=== PATIENT | female | born 1960 | race Caucasian/White ===

== ENCOUNTER 2020-05-18 06:01 | Observation (INO) | payer OTHER ==
[2020-05-18] MEDS ORDERED: SODIUM CHLORIDE 0.9% 500 ML 500 ML IV STA (06:21)
[2020-05-18] MEDS ORDERED: ASPIRIN 81 MG PO STA (06:21)
[2020-05-18] MEDS ORDERED: ENALAPRILAT 1.25 MG/ML 1 ML VIAL IVP STA (06:22)
[2020-05-18 06:41] LABS: Basophils # (A) 0.1 k/uL (0-0.2); Basophils % (A) 2 %; Eosinophils # (A) 0.2 k/uL (0-0.7); Eosinophils % (A) 3 %; HCT 43.7 % (34.0-46.0); Lymphocytes # (A) 3.1 k/uL (1.0-4.8); Lymphocytes % (A) 36 %; MCH 30.9 pg (25.0-35.0); MCHC 34.4 g/dL (31.0-37.0); MCV 89.9 fL (80.0-100.0); Mean Platelet Volume 7.6; Monocytes # (A) 0.5 k/uL (0-1.0); Monocytes % (A) 6 %; Neutrophils # (A) 4.5 k/uL (1.3-7.7); Neutrophils % (A) 53 %; Platelet Count 258 k/uL (150-450); RBC 4.86 m/uL (3.80-5.40); RDW 12.8 % (11.5-15.5); WBC 8.6 k/uL (3.8-10.6)
[2020-05-18 06:52] LABS: ALT 13 U/L (4-34); AST 20 U/L (14-36); African American GFR (CKD) >90 (>60 ml/min/1.73 sqM); Albumin 4.3 g/dL (3.5-5.0); Alkaline Phosphatase 90 U/L (38-126); Anion Gap 7 mmol/L; Blood Urea Nitrogen 10 mg/dL (7-17); Calcium 9.5 mg/dL (8.4-10.2); Carbon Dioxide 28 mmol/L (22-30); Chloride 106 mmol/L (98-107); Glucose 109 mg/dL (74-99); Lipase 104 U/L (23-300); Non-African American GFR(CKD) >90 (>60 ml/min/1.73 sqM); Potassium 3.9 mmol/L (3.5-5.1); Sodium 141 mmol/L (137-145); Total Bilirubin 0.5 mg/dL (0.2-1.3); Total Protein 7.5 g/dL (6.3-8.2)
[2020-05-18 06:53] LABS: Partial Thromboplastin Time 29.1 sec (22.0-30.0)
--- NOTE | 2020-05-18 06:55 | ED ---
Chest Pain HPI - General Chief Complaint: Chest Pain Stated Complaint: chest pain Time Seen by Provider: 05/18/20 06:11 Source: patient, RN notes reviewed Mode of arrival: wheelchair Limitations: no limitations - History of Present Illness Initial Comments: This a 59-year-old female presents emergency Department with chief complaint of chest pain. Patient states it started on Monday does wax and wane she states is currently is a dull pain. Patient has no significant cardiac history though she does have a history of hypertension hyperlipidemia and is a smoker. Patient does have some family heart disease. Patient states that she has no increased shortness of breath no abdominal pain no low back pain upper back pain. - Related Data Allergies Allergy/AdvReac Type Severity Reaction Status Date / Time azithromycin Allergy Unknown Verified 05/18/20 06:16 egg Allergy Unknown Verified 05/18/20 06:16 tramadol [From Ultram] Allergy Unknown Verified 05/18/20 06:16 Review of Systems ROS Statement: Those systems with pertinent positive or pertinent negative responses have been documented in the HPI. ROS Other: All systems not noted in ROS Statement are negative. EKG Findings - EKG Comments: EKG Findings:: EKG performed at 6:13 normal sinus rhythm rate of 82 NH 148 QRS 86 QT/QTC 396/462 Past Medical History Past Medical History: Hyperlipidemia, Hypertension History of Any Multi-Drug Resistant Organisms: MRSA Date of last positivie culture/infection: 2014 MDRO Source:: sinus Past Surgical History: Section, Tubal Ligation Additional Past Surgical History / Comment(s): sinus Past Psychological History: Depression Smoking Status: Current every day smoker Past Alcohol Use History: None Reported Past Drug Use History: None Reported General Exam Limitations: no limitations General appearance: alert, in no apparent distress Head exam: Present: atraumatic, normocephalic, normal inspection Eye exam: Present: normal appearance, PERRL, EOMI. Absent: scleral icterus, conjunctival injection, periorbital swelling ENT exam: Present: normal exam, normal oropharynx, mucous membranes moist Neck exam: Present: normal inspection, full ROM. Absent: tenderness, meningismus, lymphadenopathy Respiratory exam: Present: normal lung sounds bilaterally. Absent: respiratory distress, wheezes, rales, rhonchi, stridor Cardiovascular Exam: Present: regular rate, normal rhythm, normal heart sounds. Absent: systolic murmur, diastolic murmur, rubs, gallop, clicks GI/Abdominal exam: Present: soft, normal bowel sounds. Absent: distended, tenderness, guarding, rebound, rigid Neurological exam: Present: alert, oriented X3, CN II-XII intact, reflexes normal. Absent: motor sensory deficit Skin exam: Present: warm, dry, intact, normal color. Absent: rash Course Vital Signs 05/18/20 05/18/20 05/18/20 06:16 06:45 07:07 Temperature 98.5 F Pulse Rate 87 60 69 Respiratory 16 16 Rate Blood Pressure 200/103 160/81 168/83 O2 Sat by Pulse 99 98 97 Oximetry 05/18/20 07:18 Temperature Pulse Rate 68 Respiratory 18 Rate Blood Pressure 162/91 O2 Sat by Pulse 98 Oximetry Chest Pain MDM - MDM EKG, chest x-ray, labs are unremarkable at this point patient still has some mild discomfort. Patient will be admitted for cardiac rule out. Disposition Clinical Impression: Chest pain Disposition: ADMITTED IP TO THIS HOSP Condition: Fair Referrals: Sandoval Sims DO [Primary Care Provider] - 1-2 days
--- NOTE | 2020-05-18 07:33 | XR ---
EXAM: XR Chest, 2 Views CLINICAL HISTORY: Reason: Chest Pain TECHNIQUE: Frontal and lateral views of the chest. COMPARISON: No relevant prior studies available. FINDINGS: Lungs: Unremarkable. Normal lung volumes. No airspace consolidation. No pulmonary edema. Pleural space: Unremarkable. No pneumothorax. No pleural effusions. Heart: Unremarkable. No cardiomegaly. Mediastinum: Unremarkable. No mediastinal widening or shift. Bones/joints: Unremarkable. IMPRESSION: No evidence of acute cardiopulmonary abnormality.
[2020-05-18] MEDS ORDERED: HEPARIN SODIUM,PORCINE 5,000 UNIT/ML 1 ML VIAL IV ONE (07:39)
[2020-05-18] MEDS ORDERED: NITROGLYCERIN SL TABS 0.4 MG TAB SUBLINGUAL PRN (07:39)
[2020-05-18] MEDS ORDERED: HEPARIN SODIUM,PORCINE 5,000 UNIT/ML 1 ML VIAL IV PRN (07:39)
[2020-05-18] MEDS ORDERED: HEPARIN SOD,PORK IN 0.45% NACL 25,000 UNIT in 0.45% NACL 1 250ML.BAG IV SCH (07:45)
[2020-05-18 09:30] VITALS: PULSE 66; RESP 16
[2020-05-18] MEDS ORDERED: ATORVASTATIN 40 MG TAB PO SCH (09:30)
[2020-05-18] MEDS ORDERED: VALSARTAN 160 MG TAB PO SCH (09:30)
--- NOTE | 2020-05-18 10:09 | P.CRDCN ---
History of Present Illness History of present illness: HISTORY OF PRESENTING ILLNESS This is a pleasant 59-year-old female past medical history significant for hypertension, dyslipidemia and chronic nicotine dependence. 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 She states 6-years ago she saw one for palpitations. At that time she had a stress test and wore an outpatient monitor. According to her both tests were negative. We have been asked to see in consultation for chest pain. She states Monday while at work she felt an heavy pressure in her chest like someone kicked her. This was associated with shortness of breath. She was at work at the time and was able to continue about her day and finish. She left work around 0200 and went to sleep. She slept for 8 hours. Woke up and still didn't feel well so she went back to sleep and slept another 8 hours. She went to work again last night and had another episode of chest pain that this time radiated to her left neck and jaw. Again associated with shortness of breath and dizziness. She also describes recently having loss of appetite with mild nausea and increased fatigue. She denies palpitations, diaphoresis or vomiting. Currently she still has some mild chest pressure 2-3/10. She states she has been working with her PCP over the last few months for persistently elevated blood pressure. She had been on lisinopril and it was causing her a dry cough. 3 months ago he added valsartan on top of the lisinopril. She states she has been taking both and her blood pressures are not improving. On arrival her blood pressure was 200/103. She was given IV enalapril, repeat pressure 162/91. She is also concerned that for the previous 1-yr when she lays down to sleep at night her feet throb and feel cold. Strong pulses palpated distally. DIAGNOSTICS EKG reveals sinus mechanism with non-specific mild ST abnormalities noted, no old EKG for review. Telemetry tracings indicate sinus mechanism, no arrhythmias noted. Chest xray negative for an acute cardiopulmonary process. Laboratory reviewed, CBC unremarkable, sodium 141, potassium 3.9, creatinine 0.72, troponin negative x1 and proBNP 193. Current cardiac medications include valsartan 80 mg daily, lisinopril 10 mg daily and atorvastatin 10 mg daily. REVIEW OF SYSTEMS At the time of my exam: CONSTITUTIONAL: Denies fever or chills. CARDIOVASCULAR: Denies chest pain, shortness of breath, orthopnea, PND or palpitations. RESPIRATORY: Denies cough. GASTROINTESTINAL: Denies abdominal pain, diarrhea, constipation, nausea or vomiting. MUSCULOSKELETAL: Denies myalgias. NEUROLOGIC: Denies numbness, tingling or weakness. ENDOCRINE: Denies fatigue, weight change, polydipsia or polyurina. GENITOURINARY: Denies burning, hematuria or urgency with micturation. HEMATOLOGIC: Denies history of anemia or bleeding. PHYSICAL EXAMINATION Blood pressure 165/81 heart rate 65 afebrile and maintaining oxygen saturation on room air. CONSTITUTIONAL: No apparent distress. HEENT: Head is normocephalic. Pupils are equal, round. Sclerae anicteric. Mucous membranes of the mouth are moist. No JVD. No carotid bruit. CHEST EXAMINATION: Lungs are clear to auscultation. No chest wall tenderness is noted on palpation or with deep breathing. HEART EXAMINATION: Regular rate and rhythm. S1, S2 heard. No murmurs, gallops or rub. ABDOMEN: Soft, nontender. Positive bowel sounds. EXTREMITIES: 2+ peripheral pulses, no lower extremity edema and no calf tenderness. NEUROLOGIC EXAMINATION: Patient is awake, alert and oriented x3. ASSESSMENT Chest pain Hypertension, uncontrolled Dyslipidemia Foot pain at night Chronic nicotine dependence PLAN Symptoms are concerning for underlying coronary artery disease. We recommend proceeding with cardiac catheterization. I have discussed the risks, benefits and alternative therapies for the above-mentioned procedure and for both sedation/analgesia as well as necessary blood product administration, if indicated, as they pertain to this patient. The patient has indicated understanding and acceptance of the risks and procedures discussed. Questions have been answered appropriately and she is agreeable to move forward with above stated procedure. If unremarkable, consider outpatient monitor. Home regimen of valsartan and lisinopril is not ideal or recommended as they are from the same family of drugs. Given her side effects with lisinopril we will recommend to discontinue that mediation and increase the daily dose of valsartan to 160 mg. Check lipid panel. Obtain 2D echocardiogram and doppler study to assess cardiac structure and function. Smoking cessation recommended. Further recommendations to follow based on clinical course. Thank you kindly for this consultation. Nurse Practitioner note has been reviewed, I agree with a documented findings and plan of care. Patient was seen and examined. Past Medical History Past Medical History: Hyperlipidemia, Hypertension History of Any Multi-Drug Resistant Organisms: MRSA Date of last positivie culture/infection: 2014 MDRO Source:: sinus Past Surgical History: Section, Tubal Ligation Additional Past Surgical History / Comment(s): sinus Past Psychological History: Depression Smoking Status: Current every day smoker Past Alcohol Use History: None Reported Past Drug Use History: None Reported Medications and Allergies Home Medications Medication Instructions Recorded Confirmed Type Albuterol Inhaler [Ventolin Hfa 2 puff INHALATION RT-QID PRN 05/18/20 05/18/20 History Inhaler] Atorvastatin Calcium [Lipitor] 10 mg PO DAILY 05/18/20 05/18/20 History Cholecalciferol [Vitamin D3 (25 1,000 unit PO DAILY 05/18/20 05/18/20 History Mcg = 1000 Iu)] Citalopram Hydrobromide [CeleXA] 20 mg PO DAILY 05/18/20 05/18/20 History Lisinopril [Zestril] 10 mg PO DAILY 05/18/20 05/18/20 History Montelukast Sodium [Singulair] 10 mg PO DAILY 05/18/20 05/18/20 History Valsartan 80 mg PO DAILY 05/18/20 05/18/20 History Allergies Allergy/AdvReac Type Severity Reaction Status Date / Time azithromycin Allergy Unknown Verified 05/18/20 06:16 egg Allergy Unknown Verified 05/18/20 06:16 tramadol [From Ultram] Allergy Unknown Verified 05/18/20 06:16 Physical Exam Vitals: Vital Signs Temp Pulse Resp BP Pulse Ox 05/18/20 08:50 98.4 F 65 18 165/81 99 05/18/20 07:18 68 18 162/91 98 05/18/20 07:07 69 168/83 97 05/18/20 06:45 60 16 160/81 98 05/18/20 06:16 98.5 F 87 16 200/103 99 Intake and Output 05/17/20 05/18/20 05/18/20 22:59 06:59 14:59 Other: Weight 68.039 kg Results 05/18/20 06:27 05/18/20 06:27 Cardiac Enzymes 05/18/20 05/18/20 Range/Units 06:27 06:27 AST 20 (14-36) U/L Troponin I <0.012 (0.000-0.034) ng/mL Coagulation 05/18/20 Range/Units 06:27 PT 10.0 (9.0-12.0) sec APTT 29.1 (22.0-30.0) sec CBC 05/18/20 Range/Units 06:27 WBC 8.6 (3.8-10.6) k/uL RBC 4.86 (3.80-5.40) m/uL Hgb 15.0 (11.4-16.0) gm/dL Hct 43.7 (34.0-46.0) % Plt Count 258 (150-450) k/uL Comprehensive Metabolic Panel 05/18/20 Range/Units 06:27 Sodium 141 (137-145) mmol/L Potassium 3.9 (3.5-5.1) mmol/L Chloride 106 (98-107) mmol/L Carbon Dioxide 28 (22-30) mmol/L BUN 10 (7-17) mg/dL Creatinine 0.72 (0.52-1.04) mg/dL Glucose 109 H (74-99) mg/dL Calcium 9.5 (8.4-10.2) mg/dL AST 20 (14-36) U/L ALT 13 (4-34) U/L Alkaline Phosphatase 90 (38-126) U/L Total Protein 7.5 (6.3-8.2) g/dL Albumin 4.3 (3.5-5.0) g/dL Current Medications Generic Name Dose Route Start Last Admin Trade Name Heberq PRN Reason Stop Dose Admin Aspirin 81 mg 05/19/20 09:00 Aspirin 81 Mg PO DAILY [facility] Heparin Sodium (Porcine) 0 unit 05/18/20 07:39 Heparin Sodium,Porcine 5,000 Unit/Ml 1 Ml Vial IV Q6HR PRN Low PTT Protocol Heparin Sodium/Sodium Chloride 250 mls @ 8.165 mls/hr 05/18/20 07:45 05/18/20 08:44 25,000 unit/ Sodium Chloride IV 12 units/kg/hr .Q24H CRISTOFER 8.165 mls/hr Administration Protocol 12 UNITS/KG/HR Nitroglycerin 0.4 mg 05/18/20 07:39 Nitroglycerin Sl Tabs 0.4 Mg Tab SUBLINGUAL Q5M PRN Chest Pain Valsartan 160 mg 05/18/20 09:30 Valsartan 160 Mg Tab PO DAILY CRISTOFER Intake and Output 05/17/20 05/18/20 05/18/20 22:59 06:59 14:59 Other: Weight 68.039 kg 05/18/20 06:27 05/18/20 06:27
[2020-05-18] MEDS ORDERED: ALPRAZolam 0.25 MG TAB PO PRN (10:12)
[2020-05-18] MEDS ORDERED: ALPRAZolam 0.5 MG TAB PO PRN (10:12)
[2020-05-18] MEDS ORDERED: SODIUM CHLORIDE 0.9% 1,000 ML in EMPTY BAG 1 BAG IV ONE (10:12)
[2020-05-18 11:12] LABS: Cholesterol 229 mg/dL (<200); HDL Cholesterol 38 mg/dL (40-60); LDL Cholesterol,Calculated 135 mg/dL (0-99); Triglycerides 281 mg/dL (<150)
[2020-05-18] MEDS ORDERED: ALBUTEROL HFA INHALER INHALATION PRN (11:13)
[2020-05-18] MEDS ORDERED: CHOLECALCIFEROL 1,000 UNIT TAB PO SCH (11:15)
[2020-05-18] MEDS ORDERED: MONTELUKAST 10 MG TAB PO SCH (11:15)
[2020-05-18] MEDS ORDERED: CITALOPRAM HYDROBROMIDE 20 MG TAB PO SCH (11:15)
--- NOTE | 2020-05-18 13:13 | ECHOF ---
Referral Reason:cp, htn MEASUREMENTS -------- HEIGHT: 170.2 cm WEIGHT: 68.0 kg BP: RVIDd: 2.4 cm (< 3.3) IVSd: 1.1 cm (0.6 - 1.1) LVIDd: 4.0 cm (3.9 - 5.3) LVPWd: 1.1 cm (0.6 - 1.1) IVSs: 1.4 cm LVIDs: 3.4 cm LVPWs: 1.3 cm LAESV Index (A-L): 16.94 ml/m Ao Diam: 3.0 cm (2.0 - 3.7) AV Cusp: 1.7 cm (1.5 - 2.6) MV EXCURSION: 17.007 mm (> 18.000) MV EF SLOPE: 86 mm/s (70 - 150) EPSS: 0.7 cm MV E Valentino: 0.44 m/s MV DecT: 323 ms MV A Valentino: 0.68 m/s MV E/A Ratio: 0.65 RAP: 5.00 mmHg RVSP: 17.11 mmHg FINDINGS -------- Sinus rhythm. This was a technically good study. The left ventricular size is normal. There is borderline concentric left ventricular hypertrophy. Overall left ventricular systolic function is low-normal with, an EF between 50 - 55 %. The right ventricle is normal in size. Normal LA size by volume 22+/-6 ml/m2. The right atrial size is normal. The aortic valve is trileaflet, and appears structurally normal. No aortic stenosis or regurgitation. Mild mitral regurgitation is present. Mild tricuspid regurgitation present. Right ventricular systolic pressure is normal at < 35 mmHg. There is no pulmonic regurgitation present. The aortic root size is normal. There is no pericardial effusion. CONCLUSIONS -------- 1. The left ventricular size is normal. 2. There is borderline concentric left ventricular hypertrophy. 3. Overall left ventricular systolic function is low-normal with, an EF between 50 - 55 %. 4. The right ventricle is normal in size. 5. Normal LA size by volume 22+/-6 ml/m2. 6. The right atrial size is normal. 7. Mild mitral regurgitation is present. 8. Mild tricuspid regurgitation present. 9. There is no pulmonic regurgitation present. 10. The aortic root size is normal. 11. There is no pericardial effusion. QUENCHING CAR OPERATOR: Ashley Talavera RDCS
[2020-05-18] MEDS ORDERED: IV FLUID CONTINUATION 1,000 ML IV ONE (13:16)
[2020-05-18] MEDS ORDERED: LIDOCAINE 1% INJ 10MG/ML (20 ML MDV) ONE (13:26)
[2020-05-18] MEDS ORDERED: VERAPAMIL 2.5 MG/ML 2 ML AMP ONE (13:26)
[2020-05-18] MEDS ORDERED: fentaNYL (PF) 50 MCG/ML 2 ML AMP ONE (13:30)
[2020-05-18] MEDS ORDERED: MIDAZOLAM 2 MG/2 ML VIAL IV ONE (13:35)
[2020-05-18] MEDS ORDERED: fentaNYL (PF) 50 MCG/ML 2 ML AMP IV ONE (13:35)
[2020-05-18] MEDS ORDERED: LIDOCAINE 1% INJ 10MG/ML (20 ML MDV) SQ ONE (13:36)
[2020-05-18] MEDS ORDERED: VERAPAMIL SYRINGE (5 MG/10 ML) INTRAARTER ONE (13:39)
[2020-05-18] MEDS ORDERED: HEPARIN SODIUM 1,000 UN/ML (10ML VL) IV ONE (13:40)
[2020-05-18] MEDS ORDERED: IOPAMIDOL-370 125ML BTL INJ ONE (13:46)
[2020-05-18] MEDS ORDERED: RX INFO: IV CONTRAST WAS GIVEN 1 EACH MISC MISCELLANE PRN (13:51)
--- NOTE | 2020-05-18 13:51 | P.CARDCATH ---
Description of Procedure: PROCEDURES PERFORMED: Bilateral coronary angiography INDICATION: Chest pain concerning for unstable angina HISTORY: Patient is a pleasant 5-year-old female with history of hypertension, hyperlipidemia, tobacco abuse and palpitations who presents secondary to episodes of chest pain, nausea, shortness breath mainly lasting for 2-3 minutes oral past 2 days concerning for unstable angina. Therefore patient was recommended to have heart catheterization performed. CONSENT:I have discussed the risks, benefits and alternative therapies for the above-mentioned procedure and for both sedation/analgesia as well as necessary blood product administration, if indicated, as they pertain to this patient. The patient has indicated understanding and acceptance of the risks and procedures discussed. PROCEDURE: After the risks, benefits and alternatives of the above mentioned procedure explained in detail with the patient, informed consent was obtained. Patient was taken to the catheterization lab and prepped and draped in usual fashion. 1% lidocaine was used to anesthetize the right radial artery. A 6- Marshallese sheath was placed in the right radial artery using modified Seldinger technique. Left coronary angiography was performed with a 5-Marshallese JL 3.5 catheter and right coronary angiography was performed with a 5-Marshallese JR5 catheter in various views. The right radial sheath was removed and a TR band was placed with hemostasis achieved. The patient tolerated the procedure well. Patient was transported back to the post catheterization holding area in stable condition. Conscious Sedation: Patient was monitored under the direct supervision of vision of myself for conscious sedation using Versed and fentanyl for a total duration of 11 minutes HEMODYNAMICS: Ao: 147/77 SELECTIVE CORONARY ARTERIOGRAPHY: LEFT MAIN: The left main is a large caliber vessel which bifurcates into the LAD and circumflex. There is no significant stenosis. LEFT ANTERIOR DESCENDING CORONARY ARTERY: LAD is a large caliber vessel which wraps around to the apex. There is no significant stenosis. LEFT CIRCUMFLEX CORONARY ARTERY: Left circumflex is a moderate caliber vessel without significant stenosis. RIGHT CORONARY ARTERY: The right coronary artery is a large caliber vessel which gives off a PDA and PLV branch and is the dominant vessel. There is no significant stenosis. FINAL IMPRESSION: 1. Normal coronary arteries as described above. 2. Normal ejection fraction 60% percent without wall motion abnormalities. PLAN: 1. Aggressive risk factor modification per most recent ACC/AHA guidelines. 2. Follow-up in the office in 1-2 weeks.
[2020-05-18 15:21] VITALS: TEMP 97.8
[2020-05-18 17:42] VITALS: BP 147/75
--- NOTE | 2020-05-18 20:00 | P.HPIM ---
History of Present Illness H&P Date: 05/18/20 Chief Complaint: Chest pain History of presenting complaint: This is a pleasant 59-year-old patient of Dr. Sims. Chronic stable medical conditions include hypertension, hyperlipidemia, nicotine dependence. 2 days ago patient started feeling oppressive sensation in the chest. As his 70s taking her. Present on and off. Subsequently did radiate to her neck. Patient was slightly short of breath. No perspiration. No dizziness or lightheadedness. Still negative stress test 5 years ago. Patient admitted with diagnosis of unstable angina. Review of systems: GEN.: None EYES: None HEENT: None NECK: None RESPIRATORY: As above CARDIOVASCULAR: As above GASTROINTESTINAL: None GENITOURINARY: None MUSCULOSKELETAL: None LYMPHATICS: None HEMATOLOGICAL: None PSYCHIATRY: None NEUROLOGICAL: None Past medical history to include: Hypertension, hyperlipidemia, MRSA infection, depression Social history: Patient smokes a pack a day. Patient's with the registered nurse at [facility] . Lives with her daughter and son-in-law. Family history: Reviewed, noncontributory to presentation Physical examination: VITAL SIGNS: 98.5, 87, 16, 1 61/81, 99% room air GENERAL: BMI 23.5, laying in bed, slightly anxious. EYES: Pupils equal. Conjunctiva normal. HEENT: External appearance of nose and ears normal, oral cavity grossly normal. NECK: JVD not raised; masses not palpable. HEART: First and second heart sounds are normal; no edema. LUNGS: Respiratory rate normal; slightly decreased breath sounds. ABDOMEN: Soft, nontender, liver spleen not palpable, no masses palpable. PSYCH: [Alert and oriented x3; mood and affect anxious l. NEUROLOGICAL: Cranial nerves grossly intact; no facial asymmetry, power and sensation grossly intact. LYMPHATICS: No lymph nodes palpable in the axilla and neck INVESTIGATIONS, reviewed in the clinical context: White count 8.6 hemoglobin 15 platelets 258 potassium 3.9 creatinine 0.7 to Troponin I 3 negative LDL 135 EKG tracing personally reviewed by me-normal sinus rhythm Chest x-ray film personally reviewed by me-normal sinus rhythm Assessment: -Possible unstable angina in a patient with cardiac risk factors including hypertension, hyperlipidemia, nicotine's smoker -Essential hypertension, with urgency -Hyperlipidemia -Chronic nicotine dependence patient cigarette smoker -Mild anxiety Plan: Patient had been put on IV heparin. NV was ruled out. Seen by cardiology earlier today. Plan is for a cardiac catheterization. 2-D echocardiogram was ordered. Patient advised against smoking. Past Medical History Past Medical History: Hyperlipidemia, Hypertension History of Any Multi-Drug Resistant Organisms: MRSA Date of last positivie culture/infection: 2014 MDRO Source:: sinus Past Surgical History: Section, Tubal Ligation Additional Past Surgical History / Comment(s): sinus Past Psychological History: Depression Smoking Status: Current every day smoker Past Alcohol Use History: None Reported Past Drug Use History: None Reported Medications and Allergies Home Medications Medication Instructions Recorded Confirmed Type Albuterol Inhaler [Ventolin Hfa 2 puff INHALATION RT-QID PRN 05/18/20 05/18/20 History Inhaler] Atorvastatin Calcium [Lipitor] 10 mg PO DAILY 05/18/20 05/18/20 History Cholecalciferol [Vitamin D3 (25 1,000 unit PO DAILY 05/18/20 05/18/20 History Mcg = 1000 Iu)] Citalopram Hydrobromide [CeleXA] 20 mg PO DAILY 05/18/20 05/18/20 History Lisinopril [Zestril] 10 mg PO DAILY 05/18/20 05/18/20 History Montelukast Sodium [Singulair] 10 mg PO DAILY 05/18/20 05/18/20 History Valsartan 80 mg PO DAILY 05/18/20 05/18/20 History Allergies Allergy/AdvReac Type Severity Reaction Status Date / Time azithromycin Allergy Unknown Verified 05/18/20 06:16 egg Allergy Unknown Verified 05/18/20 06:16 tramadol [From Ultram] Allergy Unknown Verified 05/18/20 06:16 Physical Exam Vitals: Vital Signs Temp Pulse Pulse Resp BP BP Pulse Ox 05/18/20 09:22 98.3 F 66 16 186/79 98 05/18/20 08:50 98.4 F 65 18 165/81 99 05/18/20 07:18 68 18 162/91 98 05/18/20 07:07 69 168/83 97 05/18/20 06:45 60 16 160/81 98 05/18/20 06:16 98.5 F 87 16 200/103 99 Intake and Output 05/17/20 05/18/20 05/18/20 22:59 06:59 14:59 Other: Weight 68.039 kg 68.039 kg Results CBC & Chem 7: 05/18/20 06:27 05/18/20 06:27 Labs: Abnormal Lab Results - Last 24 Hours (Table) 05/18/20 05/18/20 Range/Units 06:27 06:27 Glucose 109 H (74-99) mg/dL Triglycerides 281 H (<150) mg/dL Cholesterol 229 H (<200) mg/dL LDL Cholesterol, Calc 135 H (0-99) mg/dL HDL Cholesterol 38 L (40-60) mg/dL Thrombosis Risk Factor Assmnt - Choose All That Apply Any of the Below Risk Factors Present?: Yes Each Factor Represents 1 point: Age 41-60 years Other Risk Factors: No Other congenital or acquired thrombophilia - If yes, enter type in comment: No Thrombosis Risk Factor Assessment Total Risk Factor Score: 1 Thrombosis Risk Factor Assessment Level: Low Risk
--- NOTE | 2020-05-18 20:07 | P.DS ---
Providers Date of admission: 05/18/20 08:05 Expected date of discharge: 05/18/20 Attending physician: Siddhartha Newman Consults: 05/18/20 07:40 Consult Physician Urgent Consulting Provider: Johny Colin Consult Reason/Comments: chest pain Do you want consulting provider notified?: Yes Primary care physician: Sandoval Beaumont Hospital Course: Chief Complaint: Chest pain History of presenting complaint: This is a pleasant 59-year-old patient of Dr. Sims. Chronic stable medical conditions include hypertension, hyperlipidemia, nicotine dependence. 2 days ago patient started feeling oppressive sensation in the chest. As his 70s taking her. Present on and off. Subsequently did radiate to her neck. Patient was slightly short of breath. No perspiration. No dizziness or lightheadedness. Still negative stress test 5 years ago. Patient admitted with diagnosis of unstable angina. Later today patient underwent a cardiac catheterization. Found to have normal coronaries. Troponins were negative. 2-D echocardiogram was unremarkable. Consultation: Dr. Molina from cardiology Physical examination: VITAL SIGNS: 97.8, 16, 147.75, 97% room air GENERAL: BMI 23.5, laying in bed, slightly anxious. EYES: Pupils equal. Conjunctiva normal. NECK: JVD not raised; masses not palpable. HEART: First and second heart sounds are normal; no edema. LUNGS: Respiratory rate normal; slightly decreased breath sounds. ABDOMEN: Soft, nontender, liver spleen not palpable, no masses palpable. PSYCH: [Alert and oriented x3; mood and affect anxious . INVESTIGATIONS, reviewed in the clinical context: 2-D echocardiogram-EF 50-55% Cardiac catheterization-normal coronaries White count 8.6 hemoglobin 15 platelets 258 potassium 3.9 creatinine 0.7 to Troponin I 3 negative LDL 135 EKG tracing personally reviewed by me-normal sinus rhythm Chest x-ray film personally reviewed by me-normal sinus rhythm Assessment: -Anterior chest wall pain-possibly musculoskeletal -Essential hypertension, with urgency -Hyperlipidemia -Chronic nicotine dependence patient cigarette smoker -Mild anxiety Disposition: Home Patient Condition at Discharge: Stable Plan - Discharge Summary Discharge Rx Participant: No New Discharge Prescriptions: No Action Valsartan 80 mg PO DAILY Montelukast Sodium [Singulair] 10 mg PO DAILY Lisinopril [Zestril] 10 mg PO DAILY Cholecalciferol [Vitamin D3 (25 Mcg = 1000 Iu)] 1,000 unit PO DAILY Albuterol Inhaler [Ventolin Hfa Inhaler] 2 puff INHALATION RT-QID PRN PRN Reason: Shortness Of Breath Citalopram Hydrobromide [CeleXA] 20 mg PO DAILY Atorvastatin Calcium [Lipitor] 10 mg PO DAILY Discharge Medication List Albuterol Inhaler [Ventolin Hfa Inhaler] 2 puff INHALATION RT-QID PRN 05/18/20 [History] Atorvastatin Calcium [Lipitor] 10 mg PO DAILY 05/18/20 [History] Cholecalciferol [Vitamin D3 (25 Mcg = 1000 Iu)] 1,000 unit PO DAILY 05/18/20 [History] Citalopram Hydrobromide [CeleXA] 20 mg PO DAILY 05/18/20 [History] Lisinopril [Zestril] 10 mg PO DAILY 05/18/20 [History] Montelukast Sodium [Singulair] 10 mg PO DAILY 05/18/20 [History] Valsartan 80 mg PO DAILY 05/18/20 [History] Follow up Appointment(s)/Referral(s): Sandoval Sims DO [Primary Care Provider] - 1-2 days (Office is currently closed, please call Monday am to schedule appointment.) Alli Molina DO [STAFF PHYSICIAN] - 1 Week (Office is currently closed, please call Monday am to schedule appointment.) Patient Instructions/Handouts: *Surgery [facility] - After Heart Catheterization - Professor Of Art History Instructions Discharge Disposition: HOME SELF-CARE
[2020-05-19] MEDS ORDERED: ASPIRIN 325 MG TAB PO SCH (09:00)
[2020-05-19] MEDS ORDERED: ASPIRIN 81 MG PO SCH (09:00)
== END 2020-05-18 19:49 | disposition home or self-care (01) ==
LOC: EC 06:01 → 1SOBS 08:05
PROVIDERS: ADMIT Hospitalist; ATTEND Hospitalist
DX: R07.89 Other chest pain (principal); I10 Essential (primary) hypertension; E78.5 Hyperlipidemia, unspecified; F32.9 Major depressive disorder, single episode, unspecified; R06.02 Shortness of breath; R42 Dizziness and giddiness; R11.0 Nausea; R53.83 Other fatigue; R63.0 Anorexia; M79.672 Pain in left foot; M79.671 Pain in right foot; F17.210 Nicotine dependence, cigarettes, uncomplicated; F41.9 Anxiety disorder, unspecified; I16.0 Hypertensive urgency; R00.2 Palpitations; Z79.899 Other long term (current) drug therapy; Z88.5 Allergy status to narcotic agent; Z88.1 Allergy status to other antibiotic agents; Z91.012 Allergy to eggs; Z86.14 Personal history of Methicillin resistant Staphylococcus aureus infection; Z82.49 Family history of ischemic heart disease and other diseases of the circulatory system
CPT/HCPCS: 96374; 96375; 99285; 36415; 93005; 93306; 93454; 83880; 80061; 80053; 83690; 83735; 84484; 85025; 85610; 85730; 71046; G0378; C1769; C1894; J2250; J1644 ×3; J2001; J3010; Q9967

== ENCOUNTER → 2020-08-18 | Outpatient (CLI) | payer OTHER ==
--- NOTE | 2020-08-18 16:35 | CONS ---
CONSULTATION REASON FOR CONSULTATION: Evaluation of sleep apnea. 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 The patient works between 9 p.m. and 7 a.m. in the morning. She is known to have hypertension and she also has a history of chronic anxiety and depression. She takes citalopram 20 mg p.o. daily. The patient has a special home situation where she has her daughter and son-in-law in addition to 3 other kids living with her in the same house. One of her grandchildren has a psychiatric disorder, schizoaffective disorder, and he can be at times aggressive and agitated. In any rate, she is having difficulties with her concentration span and attention span and her functionality at work, and she thinks it is related to her sleep. Typically she gets home by 7 and she goes to bed around 9 a.m. She has a very comfortable bedroom which is quite dark and comfortable, and she typically likes to get around 6-7 hours of sleep but she is unable to do so, as the patient wakes up around 1 p.m. and she is unable to go back to sleep. She struggles back and forth, and at times she gets up, does some work, and goes back to bed and manages to get another hour or two of sleep between 1 p.m. and 7 p.m. As such, she is feeling tired and she is feeling sleepy during her working hours. No recent weight gain. No documented history of snoring or witnessed apneas, although she thinks that she snores. No significant restlessness in the lower extremities. No issues with pain. No sleepwalking. No sleeptalking. No grinding of the teeth. No nocturia. No episodes of waking up choking or gasping for air. As such, the exact cause for her inability to maintain sleep beyond 1 p.m. is not clear to her. PAST MEDICAL HISTORY: Hypertension, chronic anxiety/depression and history of chronic smoking. SURGICAL HISTORY: Tubal ligation. DRUG ALLERGIES: NOT KNOWN. She is ALLERGIC to TOMATOES, EGGS, COFFEE, CATS, DOGS AND LANGLEY'S YEAST. MEDICATION: Medication includes: 1. Chlorthalidone 1 tablet a day. 2. Citalopram 20 mg p.o. daily. 3. Lipitor 20 mg p.o. daily. 4. Valsartan 80 mg p.o. daily. 5. Singulair 10 mg p.o. daily. 6. Vitamin D 2000 units daily. SOCIAL HISTORY: She smokes one pack of cigarettes a day. No history of alcoholism. No history of IV drugs. FAMILY HISTORY: Noncontributory. Negative for sleep apnea. REVIEW OF SYSTEMS: Fourteen-point review of systems was done. Positive findings are all mentioned above in the history of present illness. There may be a component of anxiety and depression. The patient tries to sleep on her side. She does not drink coffee. She drinks sometimes Mountain Dew. She typically has a light breakfast. No sleep paralysis. No hallucinations or cataplexy. She is concerned that she may be falling asleep while driving back and forth to work. No chest pain. No nausea. No vomiting. No heartburn. No respiratory difficulties during sleep. No nightmares. No head trauma. No meningitis. No stroke. PHYSICAL EXAMINATION: VITAL SIGNS: BP is 160/94, pulse 84, respirations 12, temperature 98.8, saturation 97% on room air. Height is 5 feet 7 inches, weight is 155. Baraboo score is 14. Neck size is 14-1/2 and BMI is 24.2. GENERAL APPEARANCE: Calm, comfortable. HEAD: Atraumatic, normocephalic. NECK: Supple. No JVD. No goiter or neck masses. Mallampati class II to III. LUNGS: Clear to auscultation. HEART: Heart sounds are regular rate and rhythm. Normal S1, S2. No S3, S4. No murmurs. ABDOMEN: Soft, nontender. No organomegaly. EXTREMITIES: No edema. No cyanosis or clubbing. IMPRESSION: 1. Hypersomnia during working hours. The patient is a night cleaner worker and she is unable to generate an adequate number of hours of sleep in the morning, and we think this is probably contributing to her diminished level of alertness and increased sleepiness at her working hours. Fortunately the patient has not had any judgment error or mistakes at work, and she manages to keep her job as a nurse at the [employer]. 2. Sleep maintenance insomnia. Consider underlying obstructive sleep apnea, although this is a low likelihood, in my opinion. Other factors could be contributing, including increased anxiety and depression in addition to other social factors at home which may be potentially waking up the patient in the early afternoon time and she is unable to maintain a good 6 to 7 hours of sleep. 3. Chronic anxiety and depression, on Celexa. 4. Hypertension. 5. Hyperlipidemia. 6. History of smoking. PLAN: 1. Encourage to optimize sleep hygiene measures as much as possible. 2. Will ask the patient to wear sunglasses on the way driving back home and avoid light stimulation. 3. Will ask the patient to sleep in a very comfortable bedroom environment without any distraction or noise from family members or any other elements in the house, including pets. 4. Avoid caffeinated beverages or any other form of stimulants at least 3-4 hours prior to her time to go to bed. 5. Will do a polysomnogram. This will be a morning polysomnogram to evaluate this patient for any other abnormalities contributing to her difficulties in maintaining sleep. 6. I doubt the patient has obstructive sleep apnea. I doubt the patient has night cleaner worker's disease/disorder. It is possible that extending her sleep hours may help her with her functionality during the day. A final decision will be made after reviewing the polysomnogram. May add a morning hypnotic to extend her sleep hours to an average of 6 to 7 hours. The patient has tried melatonin and Benadryl in the past, without much success. 7. Keep the same medication. 8. Will continue to follow. TEDDY / URIN: [id number] /
== END ==
LOC: SLEEP 14:44
PROVIDERS: ATTEND Internal Medicine Critical Care Medicine
DX: G47.10 Hypersomnia, unspecified (principal); G47.00 Insomnia, unspecified; F32.9 Major depressive disorder, single episode, unspecified; F41.9 Anxiety disorder, unspecified; I10 Essential (primary) hypertension; E78.5 Hyperlipidemia, unspecified; F17.210 Nicotine dependence, cigarettes, uncomplicated; Z79.899 Other long term (current) drug therapy
CPT/HCPCS: 99211

== ENCOUNTER 2021-11-24 10:01 | Emergency (ER) | payer OTHER ==
[2021-11-24 11:06] VITALS: TEMP 98.4
--- NOTE | 2021-11-24 12:02 | ED ---
General Adult HPI - General Chief complaint: Headache Stated complaint: sinus pain Time Seen by Provider: 11/24/21 11:55 Source: patient, RN notes reviewed, old records reviewed Mode of arrival: ambulatory Limitations: no limitations - History of Present Illness Initial comments: This is a 61-year-old female that presents to the emergency room with complaints of left frontal and maxillary sinus pain since September. She states that she did see her primary care doctor who prescribed her antibiotics September 13. She states that she did have 2 weeks of relief and then the pain came back. She states that she was told to come to the emergency room today for a CAT scan. She denies any fevers, no nausea and vomiting. She states that she's been trying Tylenol Motrin with no relief. She does have a history of migraines, hypertension and high cholesterol. She states that she also has had sinus surgery in the past. She does smoke a pack a day -: month(s) (3) Location: face (left front and maxillary sinus with upper teeth pain) Severity scale (1-10): 10 Quality: constant Consistency: constant Improves with: none Associated Symptoms: denies other symptoms Treatments Prior to Arrival: NSAID - Related Data Home Medications Medication Instructions Recorded Confirmed Albuterol Inhaler [Ventolin Hfa 2 puff INHALATION RT-QID PRN 05/18/20 05/18/20 Inhaler] Cholecalciferol [Vitamin D3 (25 1,000 unit PO DAILY 05/18/20 05/18/20 Mcg = 1000 Iu)] Citalopram Hydrobromide [CeleXA] 20 mg PO DAILY 05/18/20 05/18/20 Montelukast Sodium [Singulair] 10 mg PO DAILY 05/18/20 05/18/20 Valsartan 80 mg PO DAILY 05/18/20 05/18/20 Previous Rx's Medication Instructions Recorded Atorvastatin Calcium [Lipitor] 20 mg PO HS #30 tab 05/18/20 Chlorthalidone 25 mg PO DAILY #30 tab 05/18/20 Nicotine 21Mg/24Hr Patch [Habitrol] 1 each TRANSDERM DAILY #14 patch 05/18/20 Fluticasone Nasal [place] [Flonase 2 spr EA NOSTRIL DAILY #16 gm 11/24/21 Nasal [place]] Allergies Allergy/AdvReac Type Severity Reaction Status Date / Time azithromycin Allergy Unknown Verified 05/18/20 06:16 egg Allergy Unknown Verified 05/18/20 06:16 tramadol [From Ultram] Allergy Unknown Verified 05/18/20 06:16 Review of Systems ROS Statement: Those systems with pertinent positive or pertinent negative responses have been documented in the HPI. ROS Other: All systems not noted in ROS Statement are negative. Past Medical History Past Medical History: Hyperlipidemia, Hypertension History of Any Multi-Drug Resistant Organisms: MRSA Date of last positivie culture/infection: 2014 MDRO Source:: sinus Past Surgical History: Section, Tubal Ligation Additional Past Surgical History / Comment(s): sinus Past Psychological History: Depression Smoking Status: Current every day smoker Past Alcohol Use History: None Reported Past Drug Use History: None Reported General Exam Limitations: no limitations General appearance: alert, in no apparent distress Head exam: Present: atraumatic, normocephalic, other (Left-sided frontal and ma xillary tenderness) Eye exam: Absent: scleral icterus, conjunctival injection, periorbital swelling ENT exam: Present: normal oropharynx, mucous membranes moist Neck exam: Present: full ROM. Absent: tenderness, meningismus, lymphadenopathy, thyromegaly Respiratory exam: Present: normal lung sounds bilaterally. Absent: respiratory distress, accessory muscle use Cardiovascular Exam: Present: regular rate, normal rhythm GI/Abdominal exam: Present: soft. Absent: distended, tenderness Back exam: Absent: tenderness Neurological exam: Present: alert, oriented X3 Expanded Patient oriented to: Present: person, place, time Speech: Present: fluid speech Cranial nerves: EOM's Intact: Normal, Gag Reflex: Normal, Tongue Deviation: Normal Cerebellar function: Finger to Nose: Normal, Heel to Perla: Normal Motor strength exam: RUE: 5, LUE: 5, RLE: 5, LLE: 5 Eye Response: (4) open spontaneously Motor Response: (6) obeys commands Verbal Response: (5) oriented Juan Total: 15 Psychiatric exam: Present: normal affect, normal mood Skin exam: Present: warm, dry, normal color. Absent: cyanosis, diaphoretic Course Vital Signs 11/24/21 11/24/21 11:00 13:31 Temperature 98.4 F Pulse Rate 88 80 Respiratory 18 16 Rate Blood Pressure 171/85 122/69 O2 Sat by Pulse 96 97 Oximetry Medical Decision Making - Medical Decision Making CT sinuses shows mild soft tissue thickening left side nasopharynx, unremarkable visualized portion of the brain and orbits. No significant thickening of the paranasal sinuses. Bilateral maxillary antrostomy, uncinectomy, partial middle turbinectomy and partial ethmoidectomy noted. The patient denies fevers. No focal neurological deficits. She does have a history of migraine headaches which she normally takes a cocktail of Benadryl and Xanax but has not had a migraine in 2 months. Vital signs are stable. Patient was directed to take Tylenol and or Motrin as needed for pain, use nasal saline and Flonase daily. Follow up with her primary care doctor. Patient is agreeable to this plan of care. Case discussed with Dr. Mosquera. Disposition Clinical Impression: Sinus headache Disposition: HOME SELF-CARE Condition: Good Instructions (If sedation given, give patient instructions): Acute Headache (ED) Additional Instructions: Use nasal saline and Flonase daily. Continue Motrin and Tylenol as needed for pain. Follow-up with your primary care doctor this week. Return to the emergency room with any new or concerning symptoms increased pain, fevers or persistent nausea vomiting. Prescriptions: Fluticasone Nasal [place] [Flonase Nasal [place]] 2 spr EA NOSTRIL DAILY #16 gm Is patient prescribed a controlled substance at d/c from ED?: No Referrals: Sandoval Sims DO [Primary Care Provider] - 1-2 days Jean Paul Gonzalez MD [STAFF PHYSICIAN] - 1-2 days Time of Disposition: 12:47
--- NOTE | 2021-11-24 12:21 | CT ---
EXAMINATION TYPE: CT sinus wo con DATE OF EXAM: 11/24/2021 COMPARISON: CT dated 06/30/2015 HISTORY: Vertigo and left sided facial pain CT DLP: 408.7 mGycm. Automated Exposure Control for Dose Reduction was Utilized. TECHNIQUE: CT scan of the sinuses is performed without contrast, axial images are obtained, coronal r eformatted images are also reviewed. FINDINGS: Interval endoscopic sinus surgery with bilateral maxillary antrostomy, uncinectomy, partial middle tu rbinectomy and partial ethmoidectomy. Mild mucosal thickening of the nasal fossa bilaterally. Patent bilateral maxillary antrostomies. No significant mucosal thickening of the maxillary sinuses, frontal sinus, sphenoid sinus and residual ethmoid air cells. 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 Patent sphenoethmoidal recesses. Minimal opacification and mild sclerotic c hanges of the inferior aspects of the mastoid air cells. Grossly unremarkable middle ears cavities. Symmetrical unremarkable TMJs. Mild soft tissue thickening of the left side of the nasopharynx, underlying lesion can't be excluded, please correlate clinicall y. Unremarkable visualized portion of the brain and orbits. IMPRESSION: No significant mucosal thickening in the paranasal sinuses. Postoperative changes and other findings as detailed above.
[2021-11-24] MEDS ORDERED: IBUPROFEN 800 MG TAB PO STA (12:40)
[2021-11-24 13:32] VITALS: BP 122/69; PULSE 80; RESP 16
== END 2021-11-24 13:32 | disposition home or self-care (01) ==
LOC: EC 10:01
DX: R51.9 Headache, unspecified (principal); I10 Essential (primary) hypertension; E78.5 Hyperlipidemia, unspecified; F32.A Depression, unspecified; F17.210 Nicotine dependence, cigarettes, uncomplicated; Z79.899 Other long term (current) drug therapy
CPT/HCPCS: 70486; 99284